=== PATIENT | male | born 1990 | race African-American/Black ===

== ENCOUNTER 2016-10-09 14:40 | Emergency (ER) | payer SELFPAY ==
[2016-10-09 14:46] VITALS: BP 137/80; PULSE 86; TEMP 98.6; BMI 39.1
[2016-10-09] MEDS ORDERED: KETOROLAC TROMETHAMINE 60 MG/2 ML VIAL IM ONE (15:34)
[2016-10-09] MEDS ORDERED: KETOROLAC TROMETHAMINE 60 MG/2 ML VIAL ONE (15:34)
--- NOTE | 2016-10-09 15:42 | PDOC ---
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 Patient states was helping stock and walking up and down steps when he had felt the sudden sharp pain in his right needed only worsened in severity at the night went on. Patient states since then pain has continued and has difficulty walking down steps secondary to discomfort to the right knee. Patient denies recent injury to the affected area, weakness of the lower extremity, edema, or radiation of pain. Occurred: reports: other () Severity: reports: mild Pain Location: reports: lower extremity (right knee) Method of Injury: Yes: other Associated Symptoms (Fall): trouble walking Past History - Past Medical History Allergies/Adverse Reactions: Allergies Allergy/AdvReac Type Severity Reaction Status Date / Time No Known Allergies Allergy Verified 10/09/16 14:42 Home Medications: Ambulatory Orders NK [No Known Home Medication] 10/09/16 Thyroid Disease: No - Surgical History Appendectomy: Yes - Immunization History Immunization Up to Date: Yes - Psycho/Social/Smoking Cessation Hx Anxiety: No Suicidal Ideation: No Smoking Status: No Smoking History: Never smoked Years of Tobacco Use: 0 Have you smoked in the past 12 months: No Number of Cigarettes Smoked Daily: 0 Information on smoking cessation initiated: No Hx Alcohol Use: No Drug/Substance Use Hx: No Substance Use Type: None Patient Lives Alone: No Lives with/in: parents Review of Systems - Review of Systems Able to Perform ROS?: Yes Constitutional: No: Symptoms Reported Musculoskeletal: Yes: Joint Pain (right knee) Integumentary: No: Symptoms Reported Neurological: No: Symptoms reported Endocrine: No: Symptoms Reported Hematologic/Lymphatic: No: Symptoms Reported *Physical Exam - Vital Signs Last Vital Signs Temp Pulse Resp BP Pulse Ox 98.6 F 86 19 137/80 98 10/09/16 14:43 10/09/16 14:43 10/09/16 14:43 10/09/16 14:43 10/09/16 14:43 - Physical Exam General Appearance: Yes: Nourished, Appropriately Dressed. No: Apparent Distress Cardiovascular: positive: Regular Rhythm, Regular Rate. negative: Murmur Extremity: positive: Normal Capillary Refill, Normal Range of Motion, Tender ( lateral aspect of right patella. ) Integumentary: positive: Normal Color, Warm, Moist Neurologic: positive: Motor Strength 5/5 (ambulatory) Deep Tendon Reflexes: Knee (R): 2+ ED Treatment Course - RADIOLOGY Radiology Studies Ordered: Category Date Time Status KNEE 3 POS-RIGHT [RAD] Stat Radiology 10/09/16 15:34 Ordered Medical Decision Making - Medical Decision Making 10/09/16 15:43 Patient with complaints right knee pain worsened with ambulation and walking down steps since night. Patient has not taken anything for the pain and has tenderness over the LCL with minimal edema noted to the lateral aspect. Patient ordered for x-ray and will likely benefit from ortho referral and further imaging. Patient also ordered for Toradol. 10/09/16 16:35 X-ray negative for acute findings. Patient be placed in Gera wrap and discharged home to follow-up with orthopedist. *DC/Admit/Observation/Transfer Diagnosis at time of Disposition: Right knee pain Qualifiers: Chronicity: acute Qualified Code(s): M25.561 - Pain in right knee - Discharge Dispostion Disposition: HOME Condition at time of disposition: Improved - Referrals Referrals: Barron Landin MD [Staff Physician] - - Patient Instructions Printed Discharge Instructions: DI for Knee Pain Additional Instructions: Take Motrin 600 mg every 8 hours for discomfort. Apply ice to the affected area as much as you can tolerate for the next 2 days. Please use Gera wrap during the day but remove at night. If pain continues greater than 5 days consider following up with referred orthopedist.
== END 2016-10-09 16:45 | disposition home or self-care (01) ==
LOC: JERFT 14:40
DX: M25.561 Pain in right knee (principal); X50.3XXA Overexertion from repetitive movements, initial encounter; X50.9XXA Other and unspecified overexertion or strenuous movements or postures, initial encounter; Y93.89 Activity, other specified; Y92.29 Other specified public building as the place of occurrence of the external cause; Y99.0 Civilian activity done for income or pay
CPT/HCPCS: 73562-TC-RT; 99281-25

== ENCOUNTER 2017-10-19 22:46 | Inpatient (IN) | payer OTHER ==
--- NOTE | 2017-10-20 00:36 | PDOC ---
History of Present Illness - General Chief Complaint: Abscess Boil Stated Complaint: PAIN Time Seen by Provider: 10/20/17 00:32 History Source: Patient - History of Present Illness Initial Comments: 10/20/17 01:22 27 year old male c/o right perianal abscess and pain x 4 days. patient reports that he has increasing pain today with pus drainage. denies fever/ chills, history of thigh abscess 8 years ago 10/20/17 04:11 Past History - Past Medical History Allergies/Adverse Reactions: Allergies Allergy/AdvReac Type Severity Reaction Status Date / Time No Known Allergies Allergy Verified 10/09/16 14:42 Home Medications: Ambulatory Orders Clindamycin [Cleocin -] 300 mg PO Q6HPO #40 capsule 10/20/17 Ibuprofen 600 mg PO QID PRN #20 tablet 10/20/17 Thyroid Disease: No - Surgical History Appendectomy: Yes - Immunization History Immunization Up to Date: Yes - Suicide/Smoking/Psychosocial Hx Smoking Status: No Smoking History: Never smoked Years of Tobacco Use: 0 Have you smoked in the past 12 months: No Number of Cigarettes Smoked Daily: 0 Information on smoking cessation initiated: No Hx Alcohol Use: No Drug/Substance Use Hx: No Substance Use Type: None *Physical Exam - Vital Signs Last Vital Signs Temp Pulse Resp BP Pulse Ox 100.3 F H 111 H 18 140/81 97 10/19/17 22:51 10/19/17 22:51 10/19/17 22:51 10/19/17 22:51 10/19/17 22:51 - Physical Exam General Appearance: Yes: Appropriately Dressed Cardiovascular: positive: Tachycardia Male Genitalia: positive: normal genitalia, other (right buttocks erythema, pus drainage ) Extremity: positive: Erythema (warm and tenderness) Integumentary: positive: Warm Neurologic: positive: Fully Oriented, Alert, Normal Mood/Affect Procedures - Incision and Drainage I&D Site: Right: Buttock Betadine cleansed: Yes Anesthesia: 1% Lidocaine Blade Size: 11 Iodinated Packin in Plain Packing: Yes Complications: none Dressing: Yes Progress: 10/20/17 01:30 ~ 15 ml of pus drainaged from abscess, ED Treatment Course - LABORATORY CBC & Chemistry Diagram: 10/20/17 10:00 10/20/17 01:59 Progress Note - Progress Note Progress Note: A: cellulitis and abscess with packing; hyperglycemia P: cbc cmp acetone, VBG blood culture Medical Decision Making - Medical Decision Making 10/20/17 04:12 Glucose 250 + 2 ketones. patient reports polydypsia and polyphagia for unknown period of time. strong family history of diabetes. 10/20/17 04:39 case discussed with lizz Menon for potential inpatient management. patient with no other comorbidities. recommends outpatient management. patient advised to have close follow up with pmd and endocrinology. patient verbalized understanding. strict return precautions reviewed with patient, 10/20/17 05:10 repeat BGM 361. HRT 117. patient to be placed observation., will give insulin. lizz Menon is aware. patient to be placed for observation status. 10/20/17 05:14 *DC/Admit/Observation/Transfer Diagnosis at time of Disposition: Cellulitis and abscess of other specified site, Hyperglycemia - Prescriptions - Referrals - Patient Instructions - Post Discharge Activity
--- NOTE | 2017-10-20 00:45 | PDOC ---
*Physical Exam - Vital Signs Last Vital Signs Temp Pulse Resp BP Pulse Ox 100.3 F H 111 H 18 140/81 97 10/19/17 22:51 10/19/17 22:51 10/19/17 22:51 10/19/17 22:51 10/19/17 22:51 - Physical Exam Comments: 10/20/17 00:45 The patient was examined by SHREYA Johnson under my direct supervision. I personally evaluated the patient. I concur with the above findings and the plan of care. ED Treatment Course - LABORATORY CBC & Chemistry Diagram: 10/22/17 07:25 10/22/17 07:25 *DC/Admit/Observation/Transfer Diagnosis at time of Disposition: Cellulitis and abscess of other specified site, Hyperglycemia - Discharge Dispostion Disposition: VNS/HOME HEALTH CARE Condition at time of disposition: Improved - Prescriptions - Referrals - Patient Instructions - Post Discharge Activity
[2017-10-20] MEDS ORDERED: SODIUM CHLORIDE 1,000 ML IV STA (01:17)
[2017-10-20] MEDS ORDERED: CLINDAMYCIN 600MG PREMIX IVPB 600 MG/50 ML BAG IVPB ONE ×2 (01:21→01:31)
[2017-10-20 02:12] LABS: BASO % 0.4 % (0-2.0); EOS % 1.1 % (0-4.5); HEMATOCRIT 41.1 % (35.4-49); HEMOGLOBIN 14.2 GM/dL (11.7-16.9); LYMPH % 7.6 % (8-40); MCH 29.3 pg (25.7-33.7); MCHC 34.5 g/dl (32.0-35.9); MEAN CELL VOLUME 84.8 fl (80-96); MEAN PLT VOLUME 9.3 fl (7.5-11.1); MONO % 11.2 % (3.8-10.2); NEUT % 79.7 % (42.8-82.8); PLATELET COUNT 230 K/MM3 (134-434); RBC 4.85 M/mm3 (4.00-5.60); RDW 12.3 % (11.9-15.9); WHITE BLOOD COUNT 16.2 K/mm3 (4.0-10.0)
[2017-10-20 02:21] LABS: URINE APPEARANCE CLEAR; URINE BILIRUBIN NEGATIVE (<2.0 mg/dL); URINE BLOOD NEGATIVE (NEGATIVE); URINE COLOR YELLOW; URINE GLUCOSE (UA) 3+ (NEGATIVE); URINE KETONE 2+ (NEGATIVE); URINE LEUK ESTERASE NEGATIVE (NEGATIVE); URINE NITRITE NEGATIVE (NEGATIVE); URINE PROTEIN NEGATIVE (NEGATIVE); URINE UROBILINOGEN NEGATIVE mg/dL (0.2-1.0)
[2017-10-20 02:40] LABS: ALBUMIN 3.6 g/dl (3.4-5.0); ANION GAP 11 (8-16); BILIRUBIN,TOTAL 0.9 mg/dL (0.2-1.0); BLOOD UREA NITROGEN 7 mg/dL (7-18); CALCIUM 8.8 mg/dL (8.5-10.1); CHLORIDE 102 mmol/L (98-107); CO2 25 mmol/L (21-32); CREATININE 1.1 mg/dL (0.7-1.3); GLUCOSE,RANDOM 250 mg/dL (74-106); POTASSIUM 3.9 mmol/L (3.5-5.1); SGOT/AST 13 U/L (15-37); SGPT/ALT 13 U/L (12-78); SODIUM 138 mmol/L (136-145); TOT PROT 7.6 g/dl (6.4-8.2)
[2017-10-20 02:41] LABS: ALK PHOS 73 U/L (45-117)
[2017-10-20 03:30] LABS: VENOUS PH 7.42 (7.32-7.42); VENOUS PO2 55.5 mmHg (28-48)
[2017-10-20] MEDS ORDERED: HEMOQUE TEST 1 EACH EACH ONE (04:50)
[2017-10-20] MEDS ORDERED: KETOROLAC TROMETHAMINE 30 MG/1 ML VIAL IVPUSH ONE (05:11)
[2017-10-20] MEDS ORDERED: INSULIN REGULAR HUMAN 100 UNITS/ML *VIAL IVPUSH ONE (05:14)
[2017-10-20] MEDS ORDERED: ACETAMINOPHEN 325 MG TABLET (FP) PO PRN (05:49)
[2017-10-20] MEDS ORDERED: INSULIN (NOVOLOG) ASPART 100 UNITS/ML 10ML VIAL ONE ×3 (05:53→20:28)
--- NOTE | 2017-10-20 05:59 | HP ---
CHIEF COMPLAINT: Boil on buttock PCP: None (just obtained insurance) HISTORY OF PRESENT ILLNESS: 27yo otherwise healthy M who presented to the ER w/ a gradually worsening perianal abscess. First started noticing it 4 days ago, assoc pain and drainage noted in undergarments. Denies fevers, chills, malaise, EBONI. He has had history of boils near his groin area about 8 years ago. In the ER, he had an elevated temp of 100.3, was found to be tachy, and noted to have significant leukocytosis. He was noted to have elevated sugars and glucosuria. No prior hx of DM2. In retrospect, he endorses possible intermittent polydipsia and polyuria. Has corrective vision. Strong family hx of diabetes. He received an I&D in the ER, drained 15mL fluid, sent for culture, wound was packed w/ iodoform. Recent Travel: Denies PAST MEDICAL HISTORY: None PAST SURGICAL HISTORY: None Social History: Denies smoking, alcohol, drugs. Sexually active with females Allergies: No Known Allergies Allergy (Verified 10/09/16 14:42) HOME MEDICATIONS: Home Medications Medication Instructions Recorded Clindamycin [Cleocin -] 300 mg PO Q6HPO #40 capsule 10/20/17 Ibuprofen 600 mg PO QID PRN #20 tablet 10/20/17 REVIEW OF SYSTEMS CONSTITUTIONAL: Absent: fever, chills, diaphoresis, generalized weakness, malaise, loss of appetite, weight change HEENT: Absent: rhinorrhea, nasal congestion, throat pain, throat swelling, difficulty swallowing, mouth swelling, ear pain, eye pain, visual changes CARDIOVASCULAR: Absent: chest pain, syncope, palpitations, irregular heart rate , lightheadedness, peripheral edema RESPIRATORY: Absent: cough, shortness of breath, dyspnea with exertion, orthopnea, wheezing, stridor, hemoptysis GASTROINTESTINAL:Absent: abdominal pain, abdominal distension, nausea, vomiting , diarrhea, constipation, melena, hematochezia GENITOURINARY: Absent: dysuria, frequency, urgency, hesitancy, hematuria, flank pain, genital pain MUSCULOSKELETAL: Absent: myalgia, arthralgia, joint swelling, back pain, neck pain SKIN: Absent: rash, itching, pallor HEMATOLOGIC/IMMUNOLOGIC: Absent: easy bleeding, easy bruising, lymphadenopathy, frequent infections ENDOCRINE:Absent: unexplained weight gain, unexplained weight loss, heat intolerance, cold intolerance NEUROLOGIC: Absent: headache, focal weakness or paresthesias, dizziness, unsteady gait, seizure, mental status changes, bladder or bowel incontinence PSYCHIATRIC: Absent: anxiety, depression, suicidal or homicidal ideation, hallucinations. PHYSICAL EXAMINATION Vital Signs Period Temp Pulse Resp BP Sys/Dennis Pulse Ox Last 24 Hr 99.2 F-100.3 F 111-117 18-18 128-140/76-81 96-97 GEN: AAOx3, NAD, Lying comfortably HEENT: PERRLA, EOmi, no JVD CV: S1, S2, tachycardic rate, regular rhythm, no murmur LUNG: CTABL ABD; Soft, NT, ND, normoactive BS MSK: No edema, no erythema, no foot ulcers : Packing inside L perianal region, mildly tender, mild surrounding erythema and warmth NEURO: CN 2-12 intact, no msk or sensation deficits, no facial droop Active Medications Acetaminophen (Tylenol -) 650 mg PO Q4H PRN PRN Reason: FEVER Ceftriaxone Sodium 2,000 mg/ (Dextrose) 50 mls @ 100 mls/hr IVPB DAILY DEYANIRA Clindamycin Phosphate (Cleocin 600 Mg Premix Ivpb -) 600 mg in 50 mls @ 100 mls /hr IVPB Q8H-IV DEYANIRA PRN Reason: Protocol Sodium Chloride (Normal Saline -) 1,000 mls @ 100 mls/hr IV ASDIR DEYANIRA Insulin Aspart (Novolog Vial Sliding Scale -) 0 vial SQ ACHS DEYANIRA PRN Reason: Protocol ASSESSMENT/PLAN: 27yo otherwise healthy M who presented to the ER w/ sepsis secondary to perianal abscess. # Sepsis 2/2 Perianal abscess -- Clindamycin 600 Q8 and Rocephin 2g daily. Pending wound cx, Bcx, lactic acid. Tylenol prn for fever/pain. IVF. Likely contributed by new onset diabetes # Hyperglycemia -- Could be signs of new onset DM2. Not in crisis. Random gluc >200 in ER. Given 10u novolog. Will get A1C for AM. BGM and ISS achs. Diabetic diet # FEN/PPx -- IVNS @100cc/hr, diabetic diet, SCDs # Dispo -- Observation Case d/w Dr Clancy & Dr Isaac Douglass MD - pGy1 Night Pbx Wire Chief Visit type - Emergency Visit Emergency Visit: Yes ED Registration Date: 10/20/17 Care time: The patient presented to the Emergency Department on the above date and was hospitalized for further evaluation of their emergent condition. - New Patient This patient is new to me today: Yes Date on this admission: 10/24/17 - Critical Care Critical Care patient: No Hospitalist Screening - Colonoscopy Questionnaire Colonoscopy Questionnaire: Colonoscopy Questionnaire - Patient: 50 - 75 years old and never had a screening colonoscopy: Unknown History of colon or rectal polyps, or CA: Unknown History of IBD, Crohn's disease or UC: Unknown History of abdominal radiation therapy as a child: Unknown - Relative: 1 with colon or rectal CA, or polyps at age 60 or younger: Unknown Colon or rectal CA diagnosed at age 45 or younger: Unknown Multiple relatives with colon or rectal CA: Unknown - Outcome: Screening Result: Negative Screen
[2017-10-20] MEDS ORDERED: KETOROLAC TROMETHAMINE 30 MG/1 ML VIAL ONE (06:03)
--- NOTE | 2017-10-20 06:31 | PN ---
Teaching Attending Note Name of Resident: Verna Douglass ATTENDING PHYSICIAN STATEMENT I saw and evaluated the patient. Chart, data reviewed. I reviewed the resident's note and discussed the case with the resident. I agree with the resident's findings and plan as documented. SUBJECTIVE: 27yo AA man came to ER complaining of boil in left buttock that he noticed about 4 days ago. Was painful, and tender. He remembers a similar skin infection several years ago. Left buttock abscess drained and packed in ER. He received clindamycin IV. He denied any fevers or chills. Found to have hyperglycemia of 250mg/dl. No prior Hx of diabetes. Has not seen a pcp in 8 years. Mother with diabetes. OBJECTIVE: Last Vital Signs Temp Pulse Resp BP Pulse Ox 99.2 F 117 H 18 128/76 96 10/20/17 05:09 10/20/17 05:09 10/20/17 05:09 10/20/17 05:09 10/20/17 05:09 general- well built, nad, overweight heent- moist oral mucosa, no thrush neck -supple cv -s1+S2+rrr chest- cta b/l abdomen- obese, bs+ left buttock with warmth, packed with iodoform skin- no rashes ext- no foot infections appreciated Abnormal Lab Results 10/20/17 10/20/17 10/20/17 01:39 01:59 01:59 WBC 16.2 H Lymphocytes % 7.6 L Monocytes % 11.2 H POC VBG pCO2 POC VBG pO2 Random Glucose 250 H AST 13 L Urine Glucose (UA) 3+ H Urine Ketones 2+ H 10/20/17 03:16 WBC Lymphocytes % Monocytes % POC VBG pCO2 37.0 L POC VBG pO2 55.5 H Random Glucose AST Urine Glucose (UA) Urine Ketones ASSESSMENT AND PLAN: #27yo man with newly diagnosed Diabetes Mellitus and perirectal asbcess s/p drainage #Perirectal abscess- s/p drainage of 15cc pus -observation -nasal mrsa pcr screen -send pus for culture -continue clindamycin IV - 600mg tid -add ceftriaxone 2g iv q24hrs -local wound care -schedule to remove iodoform packing #Newly diagnosed diabetes mellitus -insulin sliding scale -diabetic diet -send a1c, lipid panel -early childhood educator aide -podiatry and opthalmology evaluations as an outpatient -dvt prophylaxis- scds
[2017-10-20] MEDS: SODIUM CHLORIDE 1,000 ML IV SCH ×2 (07:01→19:42)
[2017-10-20] MEDS ORDERED: DEXTROSE 5%-WATER 100 ML IVPB ONE (08:52)
[2017-10-20 09:05] VITALS: BMI 29.5
--- NOTE | 2017-10-20 09:22 | PN ---
Physical Exam: SUBJECTIVE: Patient seen and examined. No acute events overnight. Offers no complaints. Denies fever, chills, sob, abd pain, or pain at I&D site. OBJECTIVE: Vital Signs Period Temp Pulse Resp BP Sys/Dennis Pulse Ox Last 24 Hr 98.5 F-100.3 F 84-117 16-18 114-148/64-84 96-97 General: lying comfortably in bed, nad HEENT: sclera anicteric, conjunctiva clear Heart: RRR, normal s1/s2, no m/r/g Lungs: CTAB Abd: soft, ntnd Ext: wwp, no edema Skin: R buttock near gluteal cleft with packing, mild induration, no fluctuance , erythema or ttp CBC, BMP 10/20/17 10:00 10/20/17 01:59 Hepatic Panel Total Bilirubin 0.9 mg/dL (0.2-1.0) 10/20/17 01:59 AST 13 U/L (15-37) L 10/20/17 01:59 ALT 13 U/L (12-78) 10/20/17 01:59 Alkaline Phosphatase 73 U/L (45-117) 10/20/17 01:59 Albumin 3.6 g/dl (3.4-5.0) 10/20/17 01:59 Microbiology 10/20/17 00:55 Buttock - Right Gram Stain - Final Active Medications Acetaminophen (Tylenol -) 650 mg PO Q4H PRN PRN Reason: FEVER Ceftriaxone Sodium 2 gm/ (Dextrose) 100 mls @ 200 mls/hr IVPB DAILY [facility] Last Admin: 10/20/17 11:17 Dose: 200 mls/hr Clindamycin Phosphate (Cleocin 600 Mg Premix Ivpb -) 600 mg in 50 mls @ 100 mls /hr IVPB Q8H-IV DEYANIRA PRN Reason: Protocol Last Admin: 10/20/17 10:24 Dose: 100 mls/hr Sodium Chloride (Normal Saline -) 1,000 mls @ 100 mls/hr IV ASDIR [facility] Last Admin: 10/20/17 07:01 Dose: 100 mls/hr Insulin Aspart (Novolog Vial Sliding Scale -) 1 vial SQ TIDAC [facility] PRN Reason: Protocol Insulin Detemir (Levemir Vial) 10 units SQ HS [facility] ASSESSMENT/PLAN: 27yo young man who last saw a medical provider in over 8 years presents with sepsis 2/2 angéilca-rectal abscess requiring I&D and found to be newly diabetic ( A1c 12.1%). #sepsis 2/2 angélica-anal abscess s/p I&D draining 15cc pus, HIV neg -c/w Clindamycin 600mg IV TID and Ceftriaxone 2g IV daily, may adjust pending wound cultures -f/u Wound cultures -Blood and urine cultures pending -Iodoform packing to be removed tomorrow #new diagnosis T2DM, A1c 12.1% -Levemir 10U HS + BGM/ISS TIDAC -Dietary consultation -Diabetic diet #FEN NS@100cc/hr lytes wnl Diabetic diet #PPX - Lovenox 40mg SQ #Dispo: m/s FULL code d/w Dr. Yue Lizarraga MD PGY1 - Internal Medicine Visit type - Emergency Visit Emergency Visit: No - New Patient This patient is new to me today: Yes Date on this admission: 10/20/17 - Critical Care Critical Care patient: No
[2017-10-20] MEDS: CLINDAMYCIN 600MG PREMIX IVPB 600 MG/50 ML BAG IVPB SCH ×2 (10:24→17:16)
[2017-10-20] MEDS: INSULIN SLIDING SCALE (NOVOLOG) 1 VIAL SQ SCH ×3 (10:26→17:23)
[2017-10-20 10:32] LABS: BASO % 0.5 % (0-2.0); EOS % 1.7 % (0-4.5); HEMATOCRIT 40.4 % (35.4-49); HEMOGLOBIN 13.6 GM/dL (11.7-16.9); MCHC 33.6 g/dl (32.0-35.9); MEAN CELL VOLUME 86.3 fl (80-96); MEAN PLT VOLUME 9.4 fl (7.5-11.1); MONO % 11.9 % (3.8-10.2); NEUT % 73.9 % (42.8-82.8); PLATELET COUNT 226 K/MM3 (134-434); RBC 4.69 M/mm3 (4.00-5.60); RDW 12.6 % (11.9-15.9); WHITE BLOOD COUNT 13.1 K/mm3 (4.0-10.0)
[2017-10-20] MEDS: CEFTRIAXONE 2 GM in DEXTROSE 5%-WATER 100 ML IVPB SCH (11:17)
--- NOTE | 2017-10-20 11:26 | EKG ---
Test Reason : Blood Pressure : / mmHG Vent. Rate : 092 BPM Atrial Rate : 092 BPM P-R Int : 192 ms QRS Dur : 100 ms QT Int : 348 ms P-R-T Axes : 027 008 007 degrees QTc Int : 430 ms NORMAL SINUS RHYTHM NORMAL ECG NO PREVIOUS ECGS AVAILABLE Confirmed by DAVID HERNANDEZ MD ([id number]) on 10/20/2017 11:26:29 AM Referred By: Confirmed By:DAVID HERNANDEZ MD
--- NOTE | 2017-10-20 17:52 | PN ---
Teaching Attending Note Name of Resident: Benita Lizarraga ATTENDING PHYSICIAN STATEMENT I saw and evaluated the patient. I reviewed the resident's note and discussed the case with the resident. I agree with the resident's findings and plan as documented. SUBJECTIVE: OBJECTIVE: Vital Signs Period Temp Pulse Resp BP Sys/Dennis Pulse Ox Last 24 Hr 98.1 F-100.3 F 81-117 16-22 114-148/64-84 96-97 Laboratory Results - last 24 hr 10/20/17 10/20/17 10/20/17 01:39 01:59 01:59 WBC 16.2 H RBC 4.85 Hgb 14.2 Hct 41.1 MCV 84.8 MCH 29.3 MCHC 34.5 RDW 12.3 Plt Count 230 MPV 9.3 Neutrophils % 79.7 Lymphocytes % 7.6 L Monocytes % 11.2 H Eosinophils % 1.1 Basophils % 0.4 VBG pH POC VBG pCO2 POC VBG pO2 Mixed VBG HCO3 Sodium 138 Potassium 3.9 Chloride 102 Carbon Dioxide 25 Anion Gap 11 BUN 7 Creatinine 1.1 Creat Clearance w eGFR > 60 POC Glucometer Random Glucose 250 H Hemoglobin A1c % Lactic Acid Calcium 8.8 Total Bilirubin 0.9 AST 13 L ALT 13 Alkaline Phosphatase 73 Total Protein 7.6 Albumin 3.6 Urine Color Yellow Urine Appearance Clear Urine pH 5.0 Ur Specific [place] 1.015 Urine Protein Negative Urine Glucose (UA) 3+ H Urine Ketones 2+ H Urine Blood Negative Urine Nitrite Negative Urine Bilirubin Negative Urine Urobilinogen Negative Ur Leukocyte Esterase Negative Acetone, Qual HIV 1&2 Antibody Screen HIV P24 Antigen 10/20/17 10/20/17 10/20/17 01:59 03:16 03:16 WBC RBC Hgb Hct MCV MCH MCHC RDW Plt Count MPV Neutrophils % Lymphocytes % Monocytes % Eosinophils % Basophils % VBG pH 7.42 POC VBG pCO2 37.0 L POC VBG pO2 55.5 H Mixed VBG HCO3 23.3 Sodium Potassium Chloride Carbon Dioxide Anion Gap BUN Creatinine Creat Clearance w eGFR POC Glucometer Random Glucose Hemoglobin A1c % Lactic Acid Calcium Total Bilirubin AST ALT Alkaline Phosphatase Total Protein Albumin Urine Color Urine Appearance Urine pH Ur Specific [place] Urine Protein Urine Glucose (UA) Urine Ketones Urine Blood Urine Nitrite Urine Bilirubin Urine Urobilinogen Ur Leukocyte Esterase Acetone, Qual Negative HIV 1&2 Antibody Screen Negative HIV P24 Antigen Negative 10/20/17 10/20/17 10/20/17 05:02 07:44 10:00 WBC RBC Hgb Hct MCV MCH MCHC RDW Plt Count MPV Neutrophils % Lymphocytes % Monocytes % Eosinophils % Basophils % VBG pH POC VBG pCO2 POC VBG pO2 Mixed VBG HCO3 Sodium Potassium Chloride Carbon Dioxide Anion Gap BUN Creatinine Creat Clearance w eGFR POC Glucometer [phone] Random Glucose Hemoglobin A1c % Lactic Acid 1.1 Calcium Total Bilirubin AST ALT Alkaline Phosphatase Total Protein Albumin Urine Color Urine Appearance Urine pH Ur Specific [place] Urine Protein Urine Glucose (UA) Urine Ketones Urine Blood Urine Nitrite Urine Bilirubin Urine Urobilinogen Ur Leukocyte Esterase Acetone, Qual HIV 1&2 Antibody Screen HIV P24 Antigen 10/20/17 10/20/17 10/20/17 10:00 10:05 11:23 WBC 13.1 H RBC 4.69 Hgb 13.6 Hct 40.4 MCV 86.3 MCH 29.0 MCHC 33.6 RDW 12.6 Plt Count 226 MPV 9.4 Neutrophils % 73.9 Lymphocytes % 12.0 D Monocytes % 11.9 H Eosinophils % 1.7 Basophils % 0.5 VBG pH POC VBG pCO2 POC VBG pO2 Mixed VBG HCO3 Sodium Potassium Chloride Carbon Dioxide Anion Gap BUN Creatinine Creat Clearance w eGFR POC Glucometer 251 Random Glucose Hemoglobin A1c % 12.1 H Lactic Acid Calcium Total Bilirubin AST ALT Alkaline Phosphatase Total Protein Albumin Urine Color Urine Appearance Urine pH Ur Specific [place] Urine Protein Urine Glucose (UA) Urine Ketones Urine Blood Urine Nitrite Urine Bilirubin Urine Urobilinogen Ur Leukocyte Esterase Acetone, Qual HIV 1&2 Antibody Screen HIV P24 Antigen Current Medications Generic Name Dose Route Start Last Admin Trade Name Reginaldoq PRN Reason Stop Dose Admin Acetaminophen 650 mg 10/20/17 05:49 10/20/17 17:18 Tylenol - PO 650 mg Q4H PRN Administration FEVER Ceftriaxone Sodium 2 gm/ 100 mls @ 200 mls/hr 10/20/17 10:00 10/20/17 11:17 Dextrose IVPB 200 mls/hr DAILY DEYANIRA Administration Clindamycin Phosphate 600 mg in 50 mls @ 100 mls/hr 10/20/17 10:00 10/20/17 17:16 Cleocin 600 Mg Premix Ivpb - IVPB 100 mls/hr Q8H-IV DEYANIRA Administration Protocol Sodium Chloride 1,000 mls @ 100 mls/hr 10/20/17 06:30 10/20/17 07:01 Normal Saline - IV 100 mls/hr ASDIR DEYANIRA Administration Insulin Aspart 1 vial 10/20/17 16:30 10/20/17 17:23 Novolog Vial Sliding Scale - SQ 6 units TIDAC DEYANIRA Administration Protocol Insulin Detemir 10 units 10/20/17 22:00 Levemir Vial SQ HS DEYANIRA ASSESSMENT AND PLAN: This is a 27 year old man with no significant history who presented to the ED with rectal pain and drainage. 1. Sepsis secondary to perirectal abscess - s/p I&D in ED 10/20 - WBC improving, afebrile - Continue Rocephin, Clindamycin - Follow up wound culture 2. Type 2 DM, newly diagnosed - HgbA1c 12.1 - Start Levemir - Continue Novolog sliding scale - Diabetic education
[2017-10-20] MEDS: INSULIN (LEVEMIR) 100 UNITS/ML UNITS SQ SCH (21:39)
[2017-10-21] MEDS: CLINDAMYCIN 600MG PREMIX IVPB 600 MG/50 ML BAG IVPB SCH ×3 (01:26→19:00)
[2017-10-21] MEDS: INSULIN SLIDING SCALE (NOVOLOG) 1 VIAL SQ SCH ×3 (06:10→17:02)
[2017-10-21 07:16] LABS: BASO % 0.8 % (0-2.0); EOS % 4.5 % (0-4.5); HEMOGLOBIN 12.6 GM/dL (11.7-16.9); LYMPH % 15.9 % (8-40); MCH 29.2 pg (25.7-33.7); MCHC 34.1 g/dl (32.0-35.9); MEAN CELL VOLUME 85.6 fl (80-96); MEAN PLT VOLUME 9.3 fl (7.5-11.1); MONO % 11.9 % (3.8-10.2); NEUT % 66.9 % (42.8-82.8); PLATELET COUNT 217 K/MM3 (134-434); RBC 4.32 M/mm3 (4.00-5.60); RDW 12.5 % (11.9-15.9); WHITE BLOOD COUNT 9.6 K/mm3 (4.0-10.0)
[2017-10-21 07:30] LABS: CALCIUM 7.9 mg/dL (8.5-10.1); CHLORIDE 110 mmol/L (98-107); POTASSIUM 3.7 mmol/L (3.5-5.1); SODIUM 143 mmol/L (136-145)
[2017-10-21 07:34] LABS: ANION GAP 6 (8-16); BLOOD UREA NITROGEN 6 mg/dL (7-18); CO2 27 mmol/L (21-32); CREATININE 0.9 mg/dL (0.7-1.3); GLUCOSE,RANDOM 165 mg/dL (74-106)
--- NOTE | 2017-10-21 09:13 | PN ---
Physical Exam: SUBJECTIVE: Patient seen and examined. 1 x BM last night with dressing changed by RN. No fever, chills, rectal pain, abdominal pain, or urinary symptoms. Eating and voiding well. OBJECTIVE: Vital Signs Period Temp Pulse Resp BP Sys/Dennis Pulse Ox Last 24 Hr 98.0 F-98.4 F 76-89 18-22 122-132/66-74 96 General: lying comfortably in bed, nad HEENT: sclera anicteric, conjunctiva clear Heart: RRR, normal s1/s2, no m/r/g Lungs: CTAB Abd: soft, ntnd Ext: wwp, no edema Skin: R buttock, within gluteal cleft with packing, mild induration, no fluctuance, erythema or ttp CBC, BMP 10/21/17 06:42 10/21/17 06:42 Hepatic Panel Total Bilirubin 0.9 mg/dL (0.2-1.0) 10/20/17 01:59 AST 13 U/L (15-37) L 10/20/17 01:59 ALT 13 U/L (12-78) 10/20/17 01:59 Alkaline Phosphatase 73 U/L (45-117) 10/20/17 01:59 Albumin 3.6 g/dl (3.4-5.0) 10/20/17 01:59 Microbiology 10/20/17 01:59 Blood - Peripheral Venous Blood Culture - Preliminary NO GROWTH OBTAINED AFTER 24 HOURS, INCUBATION TO CONTINUE FOR 4 DAYS. 10/20/17 01:59 Blood - Peripheral Venous Blood Culture - Preliminary NO GROWTH OBTAINED AFTER 24 HOURS, INCUBATION TO CONTINUE FOR 4 DAYS. 10/20/17 00:55 Buttock - Right Gram Stain - Final Active Medications Acetaminophen (Tylenol -) 650 mg PO Q4H PRN PRN Reason: FEVER Last Admin: 10/20/17 17:18 Dose: 650 mg Enoxaparin Sodium (Lovenox -) 40 mg SQ DAILY DEYANIRA Ceftriaxone Sodium 2 gm/ (Dextrose) 100 mls @ 200 mls/hr IVPB DAILY DEYANIRA Last Admin: 10/20/17 11:17 Dose: 200 mls/hr Clindamycin Phosphate (Cleocin 600 Mg Premix Ivpb -) 600 mg in 50 mls @ 100 mls /hr IVPB Q8H-IV DEYANIRA PRN Reason: Protocol Last Admin: 10/21/17 01:26 Dose: 100 mls/hr Insulin Aspart (Novolog Vial Sliding Scale -) 1 vial SQ TIDAC DEYANIRA PRN Reason: Protocol Last Admin: 10/21/17 06:10 Dose: 2 units Insulin Detemir (Levemir Vial) 10 units SQ HS [facility] Last Admin: 10/20/17 21:39 Dose: 10 units ASSESSMENT/PLAN: 27yo young man who last saw a medical provider in over 8 years presents with sepsis 2/2 angélica-rectal abscess requiring I&D and found to be newly diabetic ( A1c 12.1%). #sepsis 2/2 angélica-anal abscess s/p I&D draining 15cc pus, HIV neg -c/w Clindamycin 600mg IV TID and Ceftriaxone 2g IV daily, Day 2, may adjust pending wound cultures -f/u Wound cultures -Blood Cx NG x 24H -Surgery consulted (Dr. Singleton) #new diagnosis T2DM, A1c 12.1% -Levemir 10U HS + BGM/ISS TIDAC -Dietary consultation -Diabetic diet #FEN PO intake lytes wnl Diabetic diet #PPX - Lovenox 40mg SQ #Dispo: m/s FULL code d/w Dr. Ashok Lizarraga MD PGY1 - Internal Medicine Visit type - Emergency Visit Emergency Visit: No - New Patient This patient is new to me today: No - Critical Care Critical Care patient: No
[2017-10-21] MEDS ORDERED: DEXTROSE 5%-WATER 100 ML IVPB ONE (10:23)
[2017-10-21] MEDS: CEFTRIAXONE 2 GM in DEXTROSE 5%-WATER 100 ML IVPB SCH (12:16)
[2017-10-21] MEDS: ENOXAPARIN NA (PORCINE) 40 MG/0.4 ML DISP.SYRIN SQ SCH (12:28)
--- NOTE | 2017-10-21 15:39 | PN ---
Teaching Attending Note Name of Resident: Benita Lizarraga ATTENDING PHYSICIAN STATEMENT I saw and evaluated the patient. I reviewed the resident's note and discussed the case with the resident. I agree with the resident's findings and plan as documented. SUBJECTIVE: Patient is feeling better, no acute distress. OBJECTIVE: Vital Signs Temperature 98.3 F 10/21/17 15:22 Pulse Rate 99 H 10/21/17 15:22 Respiratory Rate 20 10/21/17 15:22 Blood Pressure 138/81 10/21/17 15:22 O2 Sat by Pulse Oximetry (%) 98 10/21/17 09:00 GEN: AAOx3, NAD, Lying comfortably HEENT: PERRLA, EOmi, no JVD CV: S1, S2 positive, mild tachycardia, regular rhythm, no murmur LUNG: CTABL ABD; Soft, NT, ND, normoactive BS MSK: No edema, no erythema, no foot ulcers : L perianal packing with mild tenderness no induration. no erythema and warmth NEURO: CN 2-12 intact, no msk or sensation deficits, no facial droop CBCD WBC 9.6 K/mm3 (4.0-10.0) 10/21/17 06:42 RBC 4.32 M/mm3 (4.00-5.60) 10/21/17 06:42 Hgb 12.6 GM/dL (11.7-16.9) 10/21/17 06:42 Hct 37.0 % (35.4-49) 10/21/17 06:42 MCV 85.6 fl (80-96) 10/21/17 06:42 MCHC 34.1 g/dl (32.0-35.9) 10/21/17 06:42 RDW 12.5 % (11.9-15.9) 10/21/17 06:42 Plt Count 217 K/MM3 (134-434) 10/21/17 06:42 MPV 9.3 fl (7.5-11.1) 10/21/17 06:42 CMP Sodium 143 mmol/L (136-145) 10/21/17 06:42 Potassium 3.7 mmol/L (3.5-5.1) 10/21/17 06:42 Chloride 110 mmol/L (98-107) H 10/21/17 06:42 Carbon Dioxide 27 mmol/L (21-32) 10/21/17 06:42 Anion Gap 6 (8-16) L 10/21/17 06:42 BUN 6 mg/dL (7-18) L 10/21/17 06:42 Creatinine 0.9 mg/dL (0.7-1.3) 10/21/17 06:42 Creat Clearance w eGFR > 60 (>60) 10/20/17 01:59 Random Glucose 165 mg/dL (74-106) H D 10/21/17 06:42 Calcium 7.9 mg/dL (8.5-10.1) L 10/21/17 06:42 Total Bilirubin 0.9 mg/dL (0.2-1.0) 10/20/17 01:59 AST 13 U/L (15-37) L 10/20/17 01:59 ALT 13 U/L (12-78) 10/20/17 01:59 Alkaline Phosphatase 73 U/L (45-117) 10/20/17 01:59 Total Protein 7.6 g/dl (6.4-8.2) 10/20/17 01:59 Albumin 3.6 g/dl (3.4-5.0) 10/20/17 01:59 Current Medications Generic Name Dose Route Start Last Admin Trade Name Reginaldoq PRN Reason Stop Dose Admin Acetaminophen 650 mg 10/20/17 05:49 10/20/17 17:18 Tylenol - PO 650 mg Q4H PRN Administration FEVER Enoxaparin Sodium 40 mg 10/21/17 11:45 10/21/17 12:28 Lovenox - SQ 40 mg DAILY DEYANIRA Administration Ceftriaxone Sodium 2 gm/ 100 mls @ 200 mls/hr 10/20/17 10:00 10/21/17 12:16 Dextrose IVPB 200 mls/hr DAILY DEYANIRA Administration Clindamycin Phosphate 600 mg in 50 mls @ 100 mls/hr 10/20/17 10:00 10/21/17 12:16 Cleocin 600 Mg Premix Ivpb - IVPB 100 mls/hr Q8H-IV DEYANIRA Administration Protocol Insulin Aspart 1 vial 10/20/17 16:30 10/21/17 12:15 Novolog Vial Sliding Scale - SQ 2 units TIDAC DEYANIRA Administration Protocol Insulin Detemir 10 units 10/20/17 22:00 10/20/17 21:39 Levemir Vial SQ 10 units HS DEYANIRA Administration Microbiology 10/20/17 00:55 Buttock - Right Gram Stain - Final 10/20/17 00:55 Buttock - Right Wound Culture - Preliminary Beta Hemolytic Strep Lactose Fermenting Neg Bacilli Pending Organism 10/20/17 01:39 Urine - Urine Clean Catch Urine Culture - Final NO GROWTH OBTAINED 10/20/17 01:59 Blood - Peripheral Venous Blood Culture - Preliminary NO GROWTH OBTAINED AFTER 24 HOURS, INCUBATION TO CONTINUE FOR 4 DAYS. 10/20/17 01:59 Blood - Peripheral Venous Blood Culture - Preliminary NO GROWTH OBTAINED AFTER 24 HOURS, INCUBATION TO CONTINUE FOR 4 DAYS. ASSESSMENT AND PLAN: This is a 27 year old man with no significant history who presented to the ED with rectal pain and drainage. # S/p Sepsis secondary to deep pilonidal asbcess ; Pilonidal s/p I&D in ED 10/20 on IV Clinda/Rocephin, improving, wound culture as above and is pending, will get Dr. Singleton surgery see the patient. #New diagnosed T2DM ; HgbA1c 12.1, started on Levemir 10units at night , with Novolog sliding scale; Diabetic education DVT Px: Lovenox
[2017-10-21] MEDS: INSULIN (LEVEMIR) 100 UNITS/ML UNITS SQ SCH (21:55)
[2017-10-22] MEDS: CLINDAMYCIN 600MG PREMIX IVPB 600 MG/50 ML BAG IVPB SCH ×3 (01:23→18:06)
[2017-10-22] MEDS: INSULIN SLIDING SCALE (NOVOLOG) 1 VIAL SQ SCH ×3 (06:31→17:31)
[2017-10-22 08:02] LABS: ALBUMIN 3.2 g/dl (3.4-5.0); ANION GAP 7 (8-16); BLOOD UREA NITROGEN 5 mg/dL (7-18); CHLORIDE 107 mmol/L (98-107); CO2 29 mmol/L (21-32); GLUCOSE,RANDOM 168 mg/dL (74-106); POTASSIUM 3.8 mmol/L (3.5-5.1); SODIUM 143 mmol/L (136-145)
[2017-10-22 08:05] LABS: ALK PHOS 60 U/L (45-117); BILIRUBIN,TOTAL 0.3 mg/dL (0.2-1.0); SGOT/AST 12 U/L (15-37); SGPT/ALT 18 U/L (12-78); TOT PROT 6.7 g/dl (6.4-8.2)
[2017-10-22 08:15] LABS: BASO % 0.6 % (0-2.0); EOS % 7.2 % (0-4.5); HEMATOCRIT 39.2 % (35.4-49); HEMOGLOBIN 13.3 GM/dL (11.7-16.9); MCHC 33.9 g/dl (32.0-35.9); MEAN CELL VOLUME 85.6 fl (80-96); MONO % 11.9 % (3.8-10.2); NEUT % 56.3 % (42.8-82.8); PLATELET COUNT 248 K/MM3 (134-434); RBC 4.57 M/mm3 (4.00-5.60); RDW 12.5 % (11.9-15.9); WHITE BLOOD COUNT 7.1 K/mm3 (4.0-10.0)
--- NOTE | 2017-10-22 08:51 | PN ---
Progress Note (short form) - Note Progress Note: Vital Signs Temperature 99.1 F 10/22/17 06:00 Pulse Rate 71 10/22/17 06:00 Respiratory Rate 20 10/22/17 06:00 Blood Pressure 122/71 10/22/17 06:00 O2 Sat by Pulse Oximetry (%) 95 10/21/17 21:00 GEN: AAOx3, NAD, Lying comfortably HEENT: PERRLA, EOmi, no JVD CV: S1, S2 positive, mild tachycardia, regular rhythm, no murmur LUNG: CTABL ABD; Soft, NT, ND, normoactive BS MSK: No edema, no erythema, no foot ulcers : L perianal packing with mild tenderness no induration. no erythema and warmth NEURO: CN 2-12 intact, no msk or sensation deficits, no facial droop CBCD WBC 7.1 K/mm3 (4.0-10.0) 10/22/17 07:25 RBC 4.57 M/mm3 (4.00-5.60) 10/22/17 07:25 Hgb 13.3 GM/dL (11.7-16.9) 10/22/17 07:25 Hct 39.2 % (35.4-49) 10/22/17 07:25 MCV 85.6 fl (80-96) 10/22/17 07:25 MCHC 33.9 g/dl (32.0-35.9) 10/22/17 07:25 RDW 12.5 % (11.9-15.9) 10/22/17 07:25 Plt Count 248 K/MM3 (134-434) 10/22/17 07:25 MPV 9.0 fl (7.5-11.1) 10/22/17 07:25 CMP Sodium 143 mmol/L (136-145) 10/22/17 07:25 Potassium 3.8 mmol/L (3.5-5.1) 10/22/17 07:25 Chloride 107 mmol/L (98-107) 10/22/17 07:25 Carbon Dioxide 29 mmol/L (21-32) 10/22/17 07:25 Anion Gap 7 (8-16) L 10/22/17 07:25 BUN 5 mg/dL (7-18) L 05/05/18 07:25 Creatinine 1.0 mg/dL (0.7-1.3) 10/22/17 07:25 Creat Clearance w eGFR > 60 (>60) 10/22/17 07:25 Random Glucose 168 mg/dL (74-106) H 10/22/17 07:25 Calcium 9.0 mg/dL (8.5-10.1) 10/22/17 07:25 Total Bilirubin 0.3 mg/dL (0.2-1.0) D 10/22/17 07:25 AST 12 U/L (15-37) L 10/22/17 07:25 ALT 18 U/L (12-78) D 10/22/17 07:25 Alkaline Phosphatase 60 U/L (45-117) 10/22/17 07:25 Total Protein 6.7 g/dl (6.4-8.2) 10/22/17 07:25 Albumin 3.2 g/dl (3.4-5.0) L 10/22/17 07:25 Current Medications Generic Name Dose Route Start Last Admin Trade Name Freq PRN Reason Stop Dose Admin Acetaminophen 650 mg 10/20/17 05:49 10/20/17 17:18 Tylenol - PO 650 mg Q4H PRN Administration FEVER Enoxaparin Sodium 40 mg 10/21/17 11:45 10/21/17 12:28 Lovenox - SQ 40 mg DAILY DEYANIRA Administration Ceftriaxone Sodium 2 gm/ 100 mls @ 200 mls/hr 10/20/17 10:00 10/21/17 12:16 Dextrose IVPB 200 mls/hr DAILY DEYANIRA Administration Clindamycin Phosphate 600 mg in 50 mls @ 100 mls/hr 10/20/17 10:00 10/22/17 01:23 Cleocin 600 Mg Premix Ivpb - IVPB 100 mls/hr Q8H-IV DEYANIRA Administration Protocol Insulin Aspart 1 vial 10/20/17 16:30 10/22/17 06:31 Novolog Vial Sliding Scale - SQ 2 units TIDAC DEYANIRA Administration Protocol Insulin Detemir 10 units 10/20/17 22:00 10/21/17 21:55 Levemir Vial SQ 10 units HS DEYANIRA Administration Home Medications Medication Instructions Recorded Clindamycin [Cleocin -] 300 mg PO Q6HPO #40 capsule 10/20/17 Ibuprofen 600 mg PO QID PRN #20 tablet 10/20/17 Microbiology 10/20/17 01:59 Blood - Peripheral Venous Blood Culture - Preliminary NO GROWTH OBTAINED AFTER 48 HOURS, INCUBATION TO CONTINUE FOR 3 DAYS. 10/20/17 01:59 Blood - Peripheral Venous Blood Culture - Preliminary NO GROWTH OBTAINED AFTER 48 HOURS, INCUBATION TO CONTINUE FOR 3 DAYS. 10/20/17 00:55 Buttock - Right Gram Stain - Final 10/20/17 00:55 Buttock - Right Wound Culture - Preliminary Beta Hemolytic Strep Lactose Fermenting Neg Bacilli Pending Organism 10/20/17 01:39 Urine - Urine Clean Catch Urine Culture - Final NO GROWTH OBTAINED ASSESSMENT AND PLAN: This is a 27 year old man with no significant history who presented to the ED with rectal pain and drainage. # S/p Sepsis secondary to perirectal abscess s/p s/p I&D in ED 10/20 on IV Clinda/Rocephin, improving, wound culture as above and is pending. #New diagnosed T2DM ; HgbA1c 12.1, started on Levemir 10units at night , with Novolog sliding scale; Diabetic education DVT Px: Lovenox
[2017-10-22] MEDS ORDERED: DEXTROSE 5%-WATER 100 ML IVPB ONE (10:14)
[2017-10-22] MEDS: ENOXAPARIN NA (PORCINE) 40 MG/0.4 ML DISP.SYRIN SQ SCH (10:26)
[2017-10-22] MEDS ORDERED: INSULIN (NOVOLOG) ASPART 100 UNITS/ML 10ML VIAL ONE (13:02)
[2017-10-22] MEDS: CEFTRIAXONE 2 GM in DEXTROSE 5%-WATER 100 ML IVPB SCH (13:11)
--- NOTE | 2017-10-22 13:52 | CONSULT ---
Consult Consult Specialty:: general surgery Referred by:: Kaden Batista MD Reason for Consultation:: pilonidal abscess - History of Present Illness Chief Complaint: abscess History of Present Illness: 27yo male no significant previous medical history presented to the emergency department with gradually worsening perianal abscess. First started noticing it 4 days ago, associated pain and drainage noted in undergarments. Denies fevers, chills, malaise, EBONI. He has had history of boils near his groin area about 8 years ago. In the ER, he had an elevated temp of 100.3, was found to be tachy, and noted to have significant leukocytosis. He was noted to have elevated sugars and glucosuria. No prior hx of DM2. In retrospect, he endorses possible intermittent polydipsia and polyuria. Has corrective vision. Strong family hx of diabetes. W were called to assess. - History Source History Provided By: Patient, Medical Record Limitations to Obtaining History: No Limitations - Alcohol/Substance Use Hx Alcohol Use: No - Smoking History Smoking history: Never smoked Have you smoked in the past 12 months: No Aproximately how many cigarettes per day: 0 Home Medications - Allergies Allergies/Adverse Reactions: Allergies Allergy/AdvReac Type Severity Reaction Status Date / Time No Known Allergies Allergy Verified 10/09/16 14:42 - Home Medications Home Medications: Ambulatory Orders Clindamycin [Cleocin -] 300 mg PO Q6HPO #40 capsule 10/20/17 Ibuprofen 600 mg PO QID PRN #20 tablet 10/20/17 Review of Systems - Review of Systems Constitutional: reports: Fever. denies: Chills Eyes: denies: Blind Spots, Recent Change in Vision HENT: denies: Difficult Swallowing, Throat Pain Neck: denies: Stiffness, Swollen Glands Cardiovascular: denies: Chest Pain, Palpitations Respiratory: denies: Cough, Snoring, SOB Gastrointestinal: denies: Abdominal Pain, Constipation, Diarrhea, Indigestion Genitourinary: denies: Burning, Discharge, Dysuria Breasts: denies: Discharge from Nipple, Pain Musculoskeletal: denies: Back Pain, Muscle Pain, Muscle Weakness Integumentary: denies: Incision, Lesions, Rash Neurological: denies: Seizure, Syncope Endocrine: denies: Unexplained Weight Gain, Unexplained Weight Loss Hematology/Lymphatic: denies: Easily Bruised, Excessive Bleeding Psychiatric: denies: Anxiety, Depression Physical Exam Vital Signs: Vital Signs Temperature 99.1 F 10/22/17 06:00 Pulse Rate 68 10/22/17 10:00 Respiratory Rate 18 10/22/17 10:00 Blood Pressure 134/82 10/22/17 10:00 O2 Sat by Pulse Oximetry (%) 95 10/21/17 21:00 Vital Signs Period Temp Pulse Resp BP Sys/Dennis Pulse Ox Last 24 Hr 98.3 F-99.1 F 68-99 18-20 122-138/71-82 95 Constitutional: Yes: Well Nourished, No Distress, Calm Eyes: Yes: Conjunctiva Clear, EOM Intact HENT: Yes: Atraumatic, Normocephalic Neck: Yes: Supple, Trachea Midline Cardiovascular: Yes: Regular Rate and Rhythm, S1, S2 Respiratory: Yes: Regular, CTA Bilaterally Gastrointestinal: Yes: Normal Bowel Sounds, Soft. No: Tenderness ...Rectal Exam: Yes: Induration (midline of gluteal cleft in the pilonidal triangle 2X3 cm, previous I&D site converted to larger cruciate incision), Sphincter Tone Normal. No: Mass Renal/: No: CVA Tenderness - Left, CVA Tenderness - Right Musculoskeletal: No: Muscle Pain, Muscle Weakness Extremities: No: Cool, Cyanosis Edema: No Wound/Incision: Yes: Dressing Removed, Draining, Unapproximated (midline gluteal cleft 1.5cm cruciate) Neurological: Yes: Alert, Oriented Psychiatric: Yes: Alert, Oriented Labs: CBC, BMP 10/22/17 07:25 10/22/17 07:25 Problem List - Problems (1) Pilonidal cyst with abscess Assessment/Plan: 27yo male newly diagnosed DM type2 with pilonidal abscess Bedside I&D extension IV antibiotics transfer to PO on discharge Given wound care instructions Discussed with patient risks, benefits and alternatives of incison and drainge, including but not limited to bleeding, infection, injury to adjacent structures , leak or injury, intraabdominal abscess, need for further procedures, ; alternatives include antibiotics, delayed or no surgery - risks of this include failure of nonoperative therapy, perforation, sepsis, recurrence, . Patient desires to proceed with operation - will take to OR for above. Informed consent signed for same. Thank you for the opportunity to participate in the care of this patient. Code(s): L05.01 - PILONIDAL CYST WITH ABSCESS (2) Diabetes Code(s): E11.9 - TYPE 2 DIABETES MELLITUS WITHOUT COMPLICATIONS Qualifiers: Diabetes mellitus type: type 2 Diabetes mellitus complication status: without complication (3) Cellulitis and abscess of other specified site Code(s): L03.818 - CELLULITIS OF OTHER SITES; L02.818 - CUTANEOUS ABSCESS OF OTHER SITES (4) Hyperglycemia Code(s): R73.9 - HYPERGLYCEMIA, UNSPECIFIED (5) Right knee pain Code(s): M25.561 - PAIN IN RIGHT KNEE Qualifiers: Chronicity: acute Qualified Code(s): M25.561 - Pain in right knee
[2017-10-22] MEDS ORDERED: LIDOCAINE HCL 1%, 10 MG/ML (50 mL VIAL) SQ ONE (14:10)
[2017-10-22] MEDS ORDERED: LIDOCAINE HCL 1%, 10 MG/ML (20ML VIAL) ONE (14:13)
--- NOTE | 2017-10-22 14:29 | PROC ---
Incision and Drainage Indication/Location: Pilonidal abscess Risks and Benefits Explained: Yes Consent on Chart: Yes Betadine cleansed: Yes Anesthesia: 1% Lidocaine Blade Size: 10 Drainage: 1ml pus Iodinated Packin/2 in Plain packing: No Sterile Dressing Applied: Yes - Remarks Remarks: deep pilonidal asbcess in the midline, strile shave and prep. formal timeout completed identifying the operative site and procedure. Completion I&D of the indurrated area Cruciate incision made in the induration. 1ml of pus expressed and the area was irrigated and packed with 1/2 inch iodoform
[2017-10-22 15:41] VITALS: BP 136/85; PULSE 84; TEMP 98.3
--- NOTE | 2017-10-22 16:43 | CONSULT ---
"Consult Consult Specialty:: endocrine Referred by:: onesimo Reason for Consultation:: diabetes mellitus uncontrolled - History of Present Illness Chief Complaint: new diagnosed diabetes mellitus History of Present Illness: 27yo otherwise healthy M who presented to the ER w/ a gradually worsening perianal abscess. First started noticing it 4 days ago, assoc pain and drainage noted in undergarments. Denies fevers, chills, malaise, EBONI. He has had history of boils near his groin area about 8 years ago. In the ER, he had an elevated temp of 100.3, was found to be tachy, and noted to have significant leukocytosis. He was noted to have elevated sugars and glucosuria. No prior hx of DM2. In retrospect,since admission sugars have improved with insulin. - History Source History Provided By: Patient - Alcohol/Substance Use Hx Alcohol Use: No - Smoking History Smoking history: Never smoked Have you smoked in the past 12 months: No Aproximately how many cigarettes per day: 0 Home Medications - Allergies Allergies/Adverse Reactions: Allergies Allergy/AdvReac Type Severity Reaction Status Date / Time No Known Allergies Allergy Verified 10/09/16 14:42 - Home Medications Home Medications: Ambulatory Orders Clindamycin [Cleocin -] 300 mg PO Q6HPO #40 capsule 10/20/17 Ibuprofen 600 mg PO QID PRN #20 tablet 10/20/17 Review of Systems - Review of Systems Constitutional: reports: Loss of Appetite, Weakness Eyes: reports: Blurred Vision HENT: reports: No Symptoms Neck: reports: No Symptoms Cardiovascular: reports: No Symptoms Respiratory: reports: Exercise Intolerance Gastrointestinal: reports: No Symptoms Genitourinary: reports: No Symptoms Breasts: reports: No Symptoms Reported Musculoskeletal: reports: No Symptoms Integumentary: reports: Rash Neurological: reports: No Symptoms Endocrine: reports: Unexplained Weight Loss Physical Exam Vital Signs: Vital Signs Temperature 98.3 F 10/22/17 14:39 Pulse Rate 84 10/22/17 14:39 Respiratory Rate 18 10/22/17 14:39 Blood Pressure 136/85 10/22/17 14:39 O2 Sat by Pulse Oximetry (%) 95 10/21/17 21:00 Constitutional: Yes: Calm Eyes: Yes: EOM Intact HENT: Yes: Normocephalic Cardiovascular: Yes: Regular Rate and Rhythm Respiratory: Yes: WNL Gastrointestinal: Yes: WNL ...Rectal Exam: Yes: WNL Renal/: Yes: WNL Breast(s): Yes: WNL Musculoskeletal: Yes: Back Pain, Muscle Weakness Extremities: Yes: WNL Edema: No Wound/Incision: Yes: Clean/Dry Neurological: Yes: Alert, Oriented Labs: CBC, BMP 10/22/17 07:25 10/22/17 07:25 Problem List - Problems (1) Cellulitis and abscess of other specified site Code(s): L03.818 - CELLULITIS OF OTHER SITES; L02.818 - CUTANEOUS ABSCESS OF OTHER SITES (2) Diabetes Code(s): E11.9 - TYPE 2 DIABETES MELLITUS WITHOUT COMPLICATIONS Qualifiers: Diabetes mellitus type: type 2 Diabetes mellitus complication status: without complication (3) Hyperglycemia Code(s): R73.9 - HYPERGLYCEMIA, UNSPECIFIED (4) Pilonidal cyst with abscess Code(s): L05.01 - PILONIDAL CYST WITH ABSCESS Assessment/Plan Current Active Problems Cellulitis and abscess of other specified site (Acute) Diabetes (Acute) Hyperglycemia (Acute) Pilonidal cyst with abscess (Acute) Abnormal Lab Results 10/22/17 10/22/17 07:25 07:25 Monocytes % 11.9 H Eosinophils % 7.2 H Anion Gap 7 L BUN 5 L Random Glucose 168 H AST 12 L Albumin 3.2 L Laboratory Results - last 24 hr 10/21/17 10/22/17 10/22/17 16:57 06:00 07:25 WBC 7.1 RBC 4.57 Hgb 13.3 Hct 39.2 MCV 85.6 MCH 29.0 MCHC 33.9 RDW 12.5 Plt Count 248 MPV 9.0 Neutrophils % 56.3 Lymphocytes % 24.0 D Monocytes % 11.9 H Eosinophils % 7.2 H Basophils % 0.6 Sodium Potassium Chloride Carbon Dioxide Anion Gap BUN Creatinine Creat Clearance w eGFR POC Glucometer 204 174 Random Glucose Calcium Total Bilirubin AST ALT Alkaline Phosphatase Total Protein Albumin 10/22/17 10/22/17 07:25 12:20 WBC RBC Hgb Hct MCV MCH MCHC RDW Plt Count MPV Neutrophils % Lymphocytes % Monocytes % Eosinophils % Basophils % Sodium 143 Potassium 3.8 Chloride 107 Carbon Dioxide 29 Anion Gap 7 L BUN 5 L Creatinine 1.0 Creat Clearance w eGFR > 60 POC Glucometer 195 Random Glucose 168 H Calcium 9.0 Total Bilirubin 0.3 D AST 12 L ALT 18 D Alkaline Phosphatase 60 Total Protein 6.7 Albumin 3.2 L Laboratory Tests 10/20/17 10:05 Hemoglobin A1c % 12.1 H plan| levemir or basaglar 20 units am novolog insulin befor meals scale given to patiet instructions [place] [facility] [place]com[place]"
--- NOTE | 2017-10-22 17:16 | DS ---
Physical Exam: SUBJECTIVE: Patient seen and examined Patient is feeling better with no acute distress, no shortness of breath, comfortable. OBJECTIVE: Vital Signs Temperature 98.3 F 10/22/17 14:39 Pulse Rate 84 10/22/17 14:39 Respiratory Rate 18 10/22/17 14:39 Blood Pressure 136/85 10/22/17 14:39 O2 Sat by Pulse Oximetry (%) 95 10/21/17 21:00 PHYSICAL EXAM GENERAL: The patient is awake, alert, and fully oriented, in no acute distress. HEAD: Normal with no signs of trauma. EYES: PERRL, extraocular movements intact, sclera anicteric, conjunctiva clear. ENT: Ears normal, nares patent, oropharynx clear without exudates, moist mucous membranes. NECK: Trachea midline, full range of motion, supple. LUNGS: Breath sounds equal, clear to auscultation bilaterally, no wheezes, no crackles, no accessory muscle use. HEART: Regular rate and rhythm, S1, S2 without murmur, rub or gallop. ABDOMEN: Soft, nontender, nondistended, normoactive bowel sounds, no guarding, no rebound, no hepatosplenomegaly, no masses. EXTREMITIES: 2+ pulses, warm, well-perfused, no edema. NEUROLOGICAL: Cranial nerves II through XII grossly intact. Normal speech, gait not observed. PSYCH: Normal mood, normal affect. SKIN: Warm, dry, normal turgor, no rashes or lesions noted. GEN: AAOx3, NAD, Lying comfortably : L perianal packing with mild tenderness no induration. no erythema and warmth LABS CBCD WBC 7.1 K/mm3 (4.0-10.0) 10/22/17 07:25 RBC 4.57 M/mm3 (4.00-5.60) 10/22/17 07:25 Hgb 13.3 GM/dL (11.7-16.9) 10/22/17 07:25 Hct 39.2 % (35.4-49) 10/22/17 07:25 MCV 85.6 fl (80-96) 10/22/17 07:25 MCHC 33.9 g/dl (32.0-35.9) 10/22/17 07:25 RDW 12.5 % (11.9-15.9) 10/22/17 07:25 Plt Count 248 K/MM3 (134-434) 10/22/17 07:25 MPV 9.0 fl (7.5-11.1) 10/22/17 07:25 CMP Sodium 143 mmol/L (136-145) 10/22/17 07:25 Potassium 3.8 mmol/L (3.5-5.1) 10/22/17 07:25 Chloride 107 mmol/L (98-107) 10/22/17 07:25 Carbon Dioxide 29 mmol/L (21-32) 10/22/17 07:25 Anion Gap 7 (8-16) L 10/22/17 07:25 BUN 5 mg/dL (7-18) L 10/22/17 07:25 Creatinine 1.0 mg/dL (0.7-1.3) 10/22/17 07:25 Creat Clearance w eGFR > 60 (>60) 10/22/17 07:25 Random Glucose 168 mg/dL (74-106) H 10/22/17 07:25 Calcium 9.0 mg/dL (8.5-10.1) 10/22/17 07:25 Total Bilirubin 0.3 mg/dL (0.2-1.0) D 10/22/17 07:25 AST 12 U/L (15-37) L 10/22/17 07:25 ALT 18 U/L (12-78) D 10/22/17 07:25 Alkaline Phosphatase 60 U/L (45-117) 10/22/17 07:25 Total Protein 6.7 g/dl (6.4-8.2) 10/22/17 07:25 Albumin 3.2 g/dl (3.4-5.0) L 10/22/17 07:25 Current Medications Generic Name Dose Route Start Last Admin Trade Name Freq PRN Reason Stop Dose Admin Acetaminophen 650 mg 10/20/17 05:49 10/20/17 17:18 Tylenol - PO 650 mg Q4H PRN Administration FEVER Enoxaparin Sodium 40 mg 10/21/17 11:45 10/22/17 10:26 Lovenox - SQ 40 mg DAILY DEYANIRA Administration Ceftriaxone Sodium 2 gm/ 100 mls @ 200 mls/hr 10/20/17 10:00 10/22/17 13:11 Dextrose IVPB 200 mls/hr DAILY DEYANIRA Administration Clindamycin Phosphate 600 mg in 50 mls @ 100 mls/hr 10/20/17 10:00 10/22/17 10:26 Cleocin 600 Mg Premix Ivpb - IVPB 100 mls/hr Q8H-IV DEYANIRA Administration Protocol Insulin Aspart 1 vial 10/20/17 16:30 10/22/17 13:11 Novolog Vial Sliding Scale - SQ 2 units TIDAC DEYANIRA Administration Protocol Insulin Detemir 10 units 10/20/17 22:00 10/21/17 21:55 Levemir Vial SQ 10 units HS DEYANIRA Administration Home Medications Medication Instructions Recorded Amoxicillin/Potassium Clav 1 each PO BID #14 tablet 10/22/17 [Augmentin 875-125 Tablet] Insulin (Levemir) [Levemir Vial] 20 units SQ HS #1 ml 10/22/17 Insulin Sliding Scale [Novolog 1 vial SQ TIDAC units 10/22/17 Vial Sliding Scale -] Microbiology 10/20/17 00:55 Buttock - Right Gram Stain - Final 10/20/17 00:55 Buttock - Right Wound Culture - Final Strep Agalactiae Group B Escherichia Coli Staphylococcus Coagulase Neg 10/20/17 01:59 Blood - Peripheral Venous Blood Culture - Preliminary NO GROWTH OBTAINED AFTER 48 HOURS, INCUBATION TO CONTINUE FOR 3 DAYS. 10/20/17 01:59 Blood - Peripheral Venous Blood Culture - Preliminary NO GROWTH OBTAINED AFTER 48 HOURS, INCUBATION TO CONTINUE FOR 3 DAYS. 10/20/17 01:39 Urine - Urine Clean Catch Urine Culture - Final NO GROWTH OBTAINED HOSPITAL COURSE: Date of Admission:10/20/17 Date of Discharge: 10/22/17 This is a 27 year old man with no significant history who presented to the ED with rectal abscess and new onset T2DM with hgA1x of 12.0 # S/p Sepsis secondary to deep pilonidal abscess with acute cellulitis ; Pilonidal s/p I&D in ED 10/20 on IV Clinda/Rocephin will discharge patient home on Augmentin 875mg po bid with food x 7 more days discussed with the surgeon, improving, wound culture as above and sensitive to Augmentin, seen the patient wants the patient to follow up with him in a week time. #New diagnosed T2DM ; HgbA1c 12.1, seen the patient Rx'd Levemir 20u in am and Novolog 3x per day with sliding scale , given an RX by Dr. Gooden for the Levemir and Novolog. Diabetic education discharge time 40minutes Minutes to complete discharge: 40 Discharge Summary Reason For Visit: HYPERGLYCEMIA CELLULITIS Current Active Problems Cellulitis and abscess of other specified site (Acute) Diabetes (Acute) Hyperglycemia (Acute) Pilonidal cyst with abscess (Acute) Condition: Improved - Instructions Diet, Activity, Other Instructions: Endocrine follow-up for new DM Ophthalmology follow-up Postoperative instructions: You had a Incision and Drainge of pilonidal abscess on 10/22/[address] Osei Singleton of [facility]. Activity: Resume your usual activities gradually, but no heavy exertion or lifting more than 10-15 pounds for 4-6 weeks. Dressing change daily with dry dressings. You may shower daily starting then, just pat the incision areas dry. Eat lightly at first, but advance to your usual diet as tolerated. Pain: For pain, you may use and alternate Tylenol (acetaminophen) and/or ibuprofen every 6 hours each as needed; this means that you can take one OR the other at 3-hour intervals. If you are prescribed a Tylenol/narcotic combination for severe pain, use it instead of plain Tylenol as needed and switch back when your pain starts decreasing. Do not take more than 4000mg of acetaminophen in a day. Take medications as prescribed or indicated on the labeling. Follow-up: Call Dr. Singleton' office at [phone] to make your postop appointment (Tuesday 1-2 weeks after surgery as advised). Clinic is held in the [facility] on the first floor of [facility]. Call the office if you have: * increasing pain not responsive to pain medication * fever of 101F or higher * vomiting * unusual or increasing bleeding or drainage from wounds * increasing redness or swelling at wound sites * inability to urinate Also, see your primary medical doctor within 1-2 weeks. Referrals: Sveta Yanez [Primary Care Provider] - Elmo Gooden MD [Staff Physician] - 1 Week Osei Singleton MD [Staff Physician] - 1 Week Disposition: HOME - Home Medications Comprehensive Discharge Medication List: Ambulatory Orders Amoxicillin/Potassium Clav [Augmentin 875-125 Tablet] 1 each PO BID #14 tablet 10/22/17 Insulin (Levemir) [Levemir Vial] 20 units SQ HS #1 ml 10/22/17 Insulin Sliding Scale [Novolog Vial Sliding Scale -] 1 vial SQ TIDAC units 11/04 This patient is new to me today: No Emergency Visit: Yes ED Registration Date: 10/20/17 Care time: The patient presented to the Emergency Department on the above date and was hospitalized for further evaluation of their emergent condition. Critical Care patient: No - Discharge Referral Referred to [facility] No
== END 2017-10-22 17:45 | disposition home or self-care (01) | DRG 720 ==
LOC: JER 22:46 → JERBED 10-20 05:11 → UNDOADMOB 10-20 06:14 → J5S 10-20 08:43 → OBSVTOIN 10-20 09:20
PROVIDERS: ADMIT Internal Medicine; ATTEND Internal Medicine
PROC: 0H98XZX Drainage of Buttock Skin, External Approach, Diagnostic (ICD-10-PCS; principal; 2017-10-20)
PROC: 0H98XZX Drainage of Buttock Skin, External Approach, Diagnostic (ICD-10-PCS; 2017-10-22)
DX: A41.89 Other specified sepsis (principal); R50.9 Fever, unspecified; D72.828 Other elevated white blood cell count; L05.01 Pilonidal cyst with abscess; E11.65 Type 2 diabetes mellitus with hyperglycemia; M25.561 Pain in right knee; L03.818 Cellulitis of other sites; E66.3 Overweight; Z68.29 Body mass index [BMI] 29.0-29.9, adult
CPT/HCPCS: 36415; 80048; 80053; 81003; 82009; 82803; 82962; 83036; 83605; 85025; 87040; 87070; 87086; 87186; 87205; 87389; 93005; 93010; 99284-25; G0378; J7030